=== PATIENT | female | born 1965 | race Caucasian/White ===

== ENCOUNTER 2017-06-13 10:25 | Emergency (ER) | payer OTHER ==
--- NOTE | ~2017-06-13 | CR230 ---
[facility] [place] [facility] & [facility] RADIOLOGY TEXT RESULTS PATIENT: REINA SMITH LOCATION: SED : 63 UNIT #: [id number] AGE: [address]: Domitila Schultz SEX: F ORDER DR: [id number] [place] [id number] E MR#: [id number] Acc #: [id number] NAME: REINA SMITH : 1965 SEX: F STUDY DATE/TIME: 06/13/2017 10:46 UNIT: SED ROOM: STUDY DESCRIPTION: CR Shoulder Min 2 View Rt Attending Physician: Domitila Schultz P.A.-C. Ordering Physician: Domitila Schultz P.A.-C. Primary Care Physician: Danny Saucedo M.D. MEDICAL IMAGING REPORT This report is preliminary unless electronic signature is present. EXAM Right shoulder 3 views 06/13/2017 1046 hours HISTORY A 1-week history of right shoulder pain diffusely. No known injury. COMPARISON None. FINDINGS AP views in internal-external rotation demonstrate no fracture, dislocation or spurring. No soft tissue calcifications. IMPRESSION Negative right shoulder. Dictated by... Tanvi Henry M.D. THIS IS AN ELECTRONICALLY VERIFIED REPORT Tanvi Henry M.D. at 06/13/2017 2:31 PM STEPHANIA/mojgan TD: 06/13/2017 11:41 JOB #: [id number] MEDICAL IMAGING REPORT Page 1 of 1
[~2017-06-13 10:25] MED LIST: CELEXA20 M1
== END 2017-06-13 11:20 | disposition home or self-care (01) ==
LOC: SED 10:25
DX: S46.811A Strain of other muscles, fascia and tendons at shoulder and upper arm level, right arm, initial encounter (principal); R03.0 Elevated blood-pressure reading, without diagnosis of hypertension; F32.9 Major depressive disorder, single episode, unspecified; X50.9XXA Other and unspecified overexertion or strenuous movements or postures, initial encounter; Y92.009 Unspecified place in unspecified non-institutional (private) residence as the place of occurrence of the external cause
CPT/HCPCS: 73030; 99283

== ENCOUNTER 2017-07-07 13:54 | Emergency (ER) | payer OTHER ==
[~2017-07-07] VITALS: Ht 182.9 cm; Wt 113.4 kg
--- NOTE | ~2017-07-07 | CR281 ---
[facility]. [facility] A Service of [facility] & [facility] RADIOLOGY TEXT RESULTS PATIENT: REINA SMITH LOCATION: SED : 63 UNIT #: [id number] AGE: [address]: INVIA ZABALA SEX: F ORDER DR: [id number] [address] [id number] MR#: [id number] Acc #: [id number] NAME: REINA SMITH : 1965 SEX: F STUDY DATE/TIME: 07/07/2017 14:36 UNIT: SED ROOM: STUDY DESCRIPTION: CR Wrist Min 3 View Lt Attending Physician: Nivia Zabala Ordering Physician: Nivia Zabala Primary Care Physician: Danny Saucedo M.D. MEDICAL IMAGING REPORT This report is preliminary unless electronic signature is present. EXAM Left wrist INDICATIONS Left wrist pain since yesterday. Patient was flipping fries and has lupus. FINDINGS Three views of the left wrist were obtained. No fracture is identified. 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 Dictated by... Kevin Johnson M.D. THIS IS AN ELECTRONICALLY VERIFIED REPORT Kevin Johnson M.D. at 07/08/2017 7:06 AM MARCO/renu TD: 07/07/2017 16:39 JOB #: [id number] MEDICAL IMAGING REPORT Page 1 of 1
== END 2017-07-07 15:25 | disposition home or self-care (01) ==
LOC: SED 13:54
DX: S63.502A Unspecified sprain of left wrist, initial encounter (principal); I10 Essential (primary) hypertension; X58.XXXA Exposure to other specified factors, initial encounter; Y92.009 Unspecified place in unspecified non-institutional (private) residence as the place of occurrence of the external cause
CPT/HCPCS: 29125; 73110; 99283